=== PATIENT | male | born 1965 | race Caucasian/White ===

== ENCOUNTER 2022-02-25 12:38 | Emergency (ER) | payer OTHER, SELFPAY ==
[2022-02-25 12:39] VITALS: BP 143/92; PULSE 94; RESP 18; TEMP 36.6; O2SAT 99; BMI 21.3
--- NOTE | 2022-02-25 12:44 | EKG12_ITS ---
Test Reason : CP Blood Pressure : / mmHG Vent. Rate : 093 BPM Atrial Rate : 093 BPM P-R Int : 160 ms QRS Dur : 114 ms QT Int : 358 ms P-R-T Axes : 052 -48 060 degrees QTc Int : 445 ms Sinus rhythm with Premature atrial complexes Left anterior fascicular block Abnormal ECG Confirmed by HAZEL SUN, CHRISTIAN ([id number]), editor house organ KATARZYNA NEFF ([id number]) on 03/02/2022 10:06:38 AM Referred By: Confirmed By:CHRISTIAN OLIVA MD
--- NOTE | 2022-02-25 12:49 | EKG12_ITS ---
Test Reason : CP Blood Pressure : / mmHG Vent. Rate : 148 BPM Atrial Rate : 147 BPM P-R Int : 000 ms QRS Dur : 114 ms QT Int : 330 ms P-R-T Axes : 000 -56 083 degrees QTc Int : 518 ms Supraventricular tachycardia Left anterior fascicular block Abnormal ECG Confirmed by HAZEL SUN, CHRISTIAN ([id number]), school photograph editor KATARZYNA NEFF ([id number]) on 03/02/2022 10:04:41 AM Referred By: Confirmed By:CHRISTIAN OLIVA MD
--- NOTE | 2022-02-25 12:50 | EDS_ITS ---
HPI History of Present Illness Chief Complaint: Palpitations Detail of Chief Complaint: Left chest fluttering and mild shortness of breath Informant: patient Onset/Context/Timing Onset: Hours Activity at onset: sudden Timing: Intermittent and Lasts (Various from minutes to longer) Quality: Positive for - (Fluttering in chest) Current Severity: Gone Maximum Severity: Mild Worsened By: Nothing Relieved By: Nothing Associated Symptoms: Positive for Dyspnea; Negative for Nausea, Vomiting, Diaphoresis, Cough, Fever, Lightheadedness, Acid Reflux and Palpitations Narrative Narrative: Patient is a 56-year-old male who has not seen a physician in many years. He has no known medical problems. He is on no prescribed medication. He does take auty-[id number]-[id number] supplements. He denies weight loss or weight gain. He denies fever or chills. He denies headache, visual, ocular auditory symptoms. He denies GI symptoms. He denies symptoms. He denies neurologic symptoms. Prior Similar Symptoms: No CVD Risk Factors: Negative for Hypertension, Diabetes, Hypercholesterolemia, Family History 1' </=55 and Smoking PE Risk Factors: Negative for Recent Travel/Surgery, Recent Immobilization, Prior DVT or PE, Cancer and OCP + Smoking + >/=35 TAD Risk Factors: Negative for Marfan's Syndrome, Hypertension and Family History PFSH PFS Medical History Ulcerative colitis Home Medications metoprolol succinate 25 mg PO BID #60 tab 02/25/22 [Rx Last Taken Unknown] Allergy/AdvReac Type Severity Reaction Status Date / Time pollen extracts Allergy Hives Verified 02/25/22 12:42 Family History Other History of partial surgical removal of colon Surgical History History of partial surgical removal of colon Social History (Updated 02/25/22 @ 12:[address] Harpreet Herrmann MD) household members: none Smoking Status: Never smoker alcohol intake: never substance use type: does not use ROS ROS ED Constitutional Constitutional ED: Denies chills, fever(s), subjective, sweats or weight loss Eyes Eyes: Reports none ENT ENT ED: Denies ear pain, rhinorrhea or sore throat Cardiovascular Cardiovascular: Reports as per HPI, palpitations and racing heartbeat; Denies orthopnea or paroxysmal nocturnal dyspnea Respiratory/Chest Respiratory/Chest: Reports dyspnea; Denies cough, dyspnea on exertion, orthopnea, paroxysmal nocturnal dyspnea or sputum Gastrointestinal Gastrointestinal: Denies abdominal pain, constipation, diarrhea, melena, nausea or vomiting Genitourinary Genitourinary ED: Denies dysuria, hematuria or urinary frequency Musculoskeletal Musculoskeletal: Denies arthralgias, back pain, myalgias or neck pain Integumentary Denies abscess, Abrasions or rash Neurologic Neurologic: Denies headache(s), paresthesias or weakness Endocrine Endocrinology: Denies polydipsia, polyphagia or polyuria Hematologic/Lymphatic Hematologic/Lymphatic: Denies easy bleeding, easy bruising or lymphadenopathy EXAM Physical Exam Const Vital Signs: 02/25/22 12:39 Temperature 97.9 F Temperature Source Temporal Pulse Rate 94 Respiratory Rate 18 Blood Pressure 143/92 H Blood Pressure Mean 109 Pulse Ox 99 Oxygen Delivery Method Room Air Positive well nourished and well developed General Appearance ED: well developed and NAD; Negative for pallor HEENT Reports TM's clear and moist mucous membranes normocephalic and atraumatic Tympanic Membrane ED: Yes TM's clear Eyes PERRL and EOMs intact bilaterally General Eye ED: Negative for pale conjunctiva or scleral icterus Neck no lymphadenopathy, supple and no JVD General: tenderness Chest Wall inspection of chest normal and palpation of chest normal Resp normal respiratory effort and clear to auscultation bilaterally Effort and Inspection: respiratory distress Cardio regular rate, regular rhythm, S1 normal heart sound, S2 normal heart sound and no murmurs Rate: other Other Details: After completing history and physical monitor was alarming and patient's in a narrow complex tachycardia at 147. Repeat EKG was obtained. GI normal to inspection, nondistended, normoactive bowel sounds, soft to palpation and non-tender Back/Spine no CVA tenderness and no thoracic nor lumbar tenderness Cervical Spine: cervical spine tenderness Extremity normal to inspection General Extremety ED: Negative for edema, pulses abnormal or tenderness General Extremity: Negative for edema or pulses abnormal Neuro oriented x3 and CN's II-XII intact bilaterally Sensorium / Orientation: awake and alert Psych mental status grossly normal Skin no rashes or lesions noted and no wounds General Skin Exam: Negative for jaundice or pallor MDM MDM MDM Narrative Medical decision making narrative: Patient with rapid heart rate. Will rule out electrolyte abnormality, thyroid disease versus other etiology. EKG was obtained and the first EKG obtained was normal other than a left anterior fascicular block. Second EKG was obtained because the monitor was alarming and is remarkable for supraventricular tachycardia with a rate of 148. Attempt to r eview rhythm on strip when heart rate increased was unsuccessful. Suspect patient's dyspnea is due to the tachycardia. Chest x-ray was obtained to rule out pulmonary cause. Patient made aware of his results. He was referred to Dr. Weathers for general practitioner follow-up and cardiology with respect to the PSVT. Patient was informed to contact Dr. Gibson's office today to be seen in a week or 2 since his blood sugar is elevated. Lab Data Attestation: I reviewed the patient's lab results. Labs: Laboratory Results - last 24 hr 02/25/22 02/25/22 12:42 12:42 WBC 6.0 RBC 4.94 Hgb 16.1 Hct 46.2 MCV 93.5 MCH 32.6 H MCHC 34.8 RDW Std Deviation 39.6 RDW Coeff of Linda 11.6 Plt Count 215 MPV 10.7 Immature Gran % (Auto) 0.300 Neut % (Auto) 70.5 H Lymph % (Auto) 18.9 L [place] % (Auto) 9.0 Eos % (Auto) 1.0 Baso % (Auto) 0.3 Absolute Neuts (auto) 4.3 Absolute Lymphs (auto) 1.14 Nucleated RBC % 0 Sodium 139 Potassium 4.0 Chloride 109 H Carbon Dioxide 26.0 Anion Gap 4 L BUN 20 H Creatinine 0.95 Estim Creat Clear Calc 86.24 Est GFR (MDRD) Af Amer 105 Est GFR (MDRD) Non-Af 87 BUN/Creatinine Ratio 21.0 H Glucose 152 H Calcium 9.3 TSH 2.13 Radiography Chest X-Ray - ED: 1 View and Read by ED Physician (In the head and review of chest x-ray reveals hyperaeration consistent with COPD. Cardiac size and silhouette normal. Perihilar regions unremarkable. Osseous structures unremarkable.) Diagnostic Testing: Clinical Impression(s) from Imaging Studies Chest X-Ray 02/25/22 12:50 IMPRESSION: No radiographic evidence of acute cardiopulmonary disease. Electronically Signed: Shakir Baxter MD at 13:14 EDT , EKG Initial EKG: Attestation: I personally reviewed and interpreted this EKG as follows: Interpretation: Sinus Rhythm (Ventricular rate is 93. There is evidence of left anterior fascicular block. There is premature atrial beats noted as well. UT interval is 160 ms. Cures duration 114 ms. QT duration 258 ms. [place] to the left.) Follow-up EKG: Attestation: I personally reviewed and interpreted this EKG as follows: Interpretation: - (Supraventricular tachycardia rate of 148. There is evidence of left anterior fascicular block. Cures duration 114 ms. QT duration 10 and 30 ms. [place] to the left.) Comments: Patient spontaneously broke and is in a sinus rhythm with a rate of 86. Discharge Plan Triage Chief Complaint: Palpitations ED Provider: Harpreet Herrmann Dx/Rx/DC Orders Clinical Impression: Paroxysmal supraventricular tachycardia seen on media monitor, Hyperglycemia, Hypertension Instructions: ED Hypertension, To Be Confirmed, ED Tachycardia: PAT, ED Hyperglycemia New Susp Diabetes Prescriptions: New metoprolol succinate 25 mg tablet extended release 24 hr 25 mg PO BID Qty: 60 RF: 0 Primary Care Provider: Care Physician,No Primary Referrals: Elisabeth Wiley MD [STAFF PHYSICIAN] - 1-2 Weeks Franklin Duran MD [STAFF PHYSICIAN] - 5-7 Days Care Physician,No Primary [Primary Care Provider] - Disposition Disposition: Home, Self Care
--- NOTE | 2022-02-25 12:50 | RAD_ITS ---
INDICATION: Dyspnea EXAMINATION/TECHNIQUE: X-RAY - XR Chest 1 View COMPARISON: None. FINDINGS: LINES/DEVICES: None. LUNGS: No consolidation, edema or effusion. No pneumothorax. MEDIASTINUM AND CARDIOVASCULAR STRUCTURES: Cardiac silhouette not enlarged. Central airways and mediastinal contour are unremarkable. BONES AND SOFT TISSUES: Unremarkable. RAD/Chest 1 View (Portable) IMPRESSION: No radiographic evidence of acute cardiopulmonary disease. Electronically Signed: Shakir Baxter MD at 13:14 EDT ,
[2022-02-25 13:06] LABS: Absolute Lymphocyte Count 1.14 X10^3/uL (0.83-4.51); Absolute Neutrophil Count 4.3 X10^3/uL (2.0-7.7); Basophil# 0.02 X10^3/uL; Basophil% 0.3 % (0-1); Eosinophil# 0.06 X10^3/uL; Hematocrit 46.2 % (40-54); Hemoglobin 16.1 g/dL (13.0-16.5); Lymphocyte # 1.14 X10^3/ul (0.83-4.51); Lymphocyte % 18.9 % (19-41); Mean Corp Hgb Conc 34.8 g/dL (32-36); Mean Corpuscular Hgb 32.6 pg (27.0-32.0); Mean Corpuscular Volume 93.5 fL (80-94); Mean Platelet Vol. 10.7 fl (6.2-12.0); Monocyte# 0.54 X10^3/uL; NRBC Flagged by Analyzer 0 % (0-5); Neutrophil # 4.25 X10^3/uL (2.7-7.7); Neutrophil % 70.5 % (47-70); Platelet Count 215 K/mm3 (150-450); RBC Distribution Width CV 11.6 % (11.6-14.6); RBC Distribution Width SD 39.6 fl (35.1-43.9); Red Blood Count 4.94 M/mm3 (4.6-6.2)
[2022-02-25 13:28] LABS: Anion Gap 4 (5-15); BUN 20 mg/dL (7-18); Calcium,Total 9.3 mg/dL (8.5-10.1); Chloride 109 mmol/L (98-107); Creatinine, Serum 0.95 mg/dL (0.70-1.30); EST Glomerular Filtration Rate 87 mL/min (>60); Est Glom Filt Rate - Afr Amer 105 mL/min (>60); Estimated Creatinine Clearance 86.24 ml/min; Glucose 152 mg/dL (74-106); Sodium Level 139 mmol/L (136-145); Thyroid Stim Hormone (TSH) 2.13 uIU/mL (0.358-3.74)
[2022-02-25 13:58] VITALS: BP 133/89; PULSE 87; RESP 16; O2SAT 98
[2022-02-25] MEDS: Metoprolol(XL)Succ 25 MG Tablet PO (13:58)
== END 2022-02-25 14:05 | disposition home or self-care (01) ==
PROVIDERS: Emergency Provider Emergency Medicine; Visit Provider Emergency Medicine
DX: I47.9 Paroxysmal tachycardia, unspecified (principal); R73.9 Hyperglycemia, unspecified; I10 Essential (primary) hypertension
CPT/HCPCS: 71045; 80048; 84443; 85025; 93005; 99285; A4216

== ENCOUNTER → 2022-04-13 | Outpatient (CLI) | payer OTHER, SELFPAY ==
--- NOTE | 2022-04-13 07:00 | ECHOD_ITS ---
Reason For Study: Arrhythmia Procedure This was a 2D Doppler, Color Flow transthoracic echocardiogram. The exam was of adequate technical quality. Exam performed in department. Left Ventricle Normal LV size. Left ventricular systolic function is normal. The estimated ejection fraction is 60 %. No evidence for diastolic dysfunction. No regional wall motion abnormalities noted. Right Ventricle Normal RV size. Normal systolic function. Atria Normal left atrium. Normal right atrium. No doppler evidence for ASD. Mitral Valve There is no mitral annular calcification. Normal mitral valve. Trivial mitral valve insufficiency. Tricuspid Valve Normal tricuspid valve. Trivial tricuspid valve insufficiency. Right ventricular systolic pressure estimated to be 22 mmHg. Aortic Valve Trisinus/trileaflet aortic valve. Normal aortic valve. Pulmonic Valve The pulmonic valve is not well visualized. Trivial pulmonic valve insufficiency. Great Vessels Normal sized aortic root. Pericardium/Pleural No pericardial effusion. MMode/2D Measurements & Calculations LVIDd: 4.6 cm IVSd: 1.0 cm Ao root diam: 3.0 cm LVIDs: 3.3 cm LVPWd: 0.90 cm RVDd: 2.9 cm FS: 28.7 % LAV(MOD-bp): 44.6 ml LVAd ap4: 26.8 cm2 SV(MOD-sp4): 44.8 ml LAV(MOD-bp) Indexed: 24.2 ml/m2 LVLd ap4: 7.7 cm LAV(MOD-sp2): 54.6 ml EDV(MOD-sp4): 76.6 ml LAV(MOD-sp4): 33.8 ml EDV(sp4-el): 79.4 ml LVAs ap4: 15.6 cm2 LVLs ap4: 6.3 cm ESV(MOD-sp4): 31.8 ml ESV(sp4-el): 32.8 ml EF(MOD-sp4): 58.5 % EF(sp4-el): 58.6 % SV(sp4-el): 46.5 ml LA A4 area: 14.2 cm2 LA dimension(2D): 3.3 cm RA A4 area: 11.0 cm2 Doppler Measurements & Calculations MV E max grant: 64.2 cm/sec Lat Peak E' Grant: 11.8 cm/sec Med Peak E' Grant: 9.2 cm/sec MV A max grant: 50.6 cm/sec E/E' lat: 5.4 E/E' med: 7.0 MV E/A: 1.3 Ao V2 max: 125.6 cm/sec LV V1 max: 88.3 cm/sec PA V2 max: 119.1 cm/sec Ao max P.3 mmHg LV V1 max P.1 mmHg Ao V2 mean: 89.7 cm/sec Ao mean P.5 mmHg Ao V2 VTI: 28.0 cm TR max grant: 216.1 cm/sec TR max P.7 mmHg ECHO/Echo Complete Interpretation Summary Left ventricular systolic function is normal. The estimated ejection fraction is 60 %. Trivial mitral valve insufficiency. Trivial tricuspid valve insufficiency. Trivial pulmonic valve insufficiency. Right ventricular systolic pressure estimated to be 22 mmHg. No evidence for diastolic dysfunction. Ordering Physician: Franklin Duran Referring Physician: Franklin Duran Performed By: Barbie Hernandez, REJI, RVT
--- NOTE | 2022-04-13 08:39 | STRESSREP_ITS ---
Stress Test Report Date: 04-13-2022 Procedure: Pharmacologic stress nuclear imaging study Indications: PSVT; palpitations; chest pain Consent: Per the patient Procedure: The patient underwent pharmacologic (Regadenoson 0.4mg ) evaluation with a peak heart rate of 85 beats per minute (51%predicted maximal heart rate) and a peak blood pressure of 126/82 mmHg. The baseline ECG demonstrated normal sinus rhythm. The peak pharmacologic ECG demonstrated no obvious ECG changes. There were no cardiac dysrhythmias pretest, during pharmacologic infusion, or re covery. There was no complaint of chest discomfort during pharmacologic infusion or recovery. The examination was discontinued secondary to completion of protocol. Impression: 1. Pharmacologic (Regadenoson) evaluation 2. Peak pharmacologic ECG with no obvious ECG changes. 3. There were no cardiac dysrhythmias pretest, during pharmacologic infusion, or recovery. 4. Nuclear images pending Myocardial perfusion imaging study: Technique: The patient was injected with 11.6 millicuries of technetium 99m Cardiolite and subsequently rest SPECT Cardiolite nuclear imaging was obtained in the h orizontal long, vertical long, and short axis views. The patient underwent pharmacologic (Regadenoson) evaluation with a peak heart rate of 85 beats per minute (51% percent predicted maximal heart rate) and a peak blood pressure of 126/82 mmHg. The patient was injected with 36.0 millicuries of technetium 99m Cardiolite and subsequently stress SPECT Cardiolite nuclear imaging was obtained in the horizontal long, vertical long, and short axis views. A gated Cardiolite study at peak stress was obtained. Interpretation: Rest and stress SPECT Cardiolite nuclear imaging status post realignment, n ormalization, and attenuation correction demonstrate the appearance of body motion during image acquisition and on the preattenuation images the appearance of diminished myocardial perfusion/tracer uptake in portions of the mid inferior segments without significant change between rest and stress and on the post attenuation correction images the appearance of relative uniform tracer uptake and myocardial perfusion appearing within normal limits. There is end systolic thickening and brightening. The gated Cardiolite study demonstrates myocardial thickening and inward wall motion. The reported LVEF is 69%. Impression: 1. Rest and stress SPECT currently nuclear imaging demonstrate the appearance of body motion during image acquisition and myocardial perfusion changes on the preattenuation correction images appearing compatible with an area of previous myocardial injury/infarction with no myocardial perfusion images considered diagnostic for associated stress-induced myocardial ischemia and on the post attenuation correction images the appearance of relatively uniform tracer uptake and myocardial perfusion appearing within normal limits. 2. The gated Cardiolite study reports an LVEF of 69%. This note was generated with Be my eyesation software. It may contain incorrect words, spelling, and punctuation that were not noted in checking the note before signing.
== END | disposition home or self-care (01) ==
LOC: CVS 06:58
PROVIDERS: Referring Provider Internal Medicine Cardiovascular Disease; Visit Provider Internal Medicine Cardiovascular Disease
DX: I47.1 Supraventricular tachycardia (principal); R07.9 Chest pain, unspecified
CPT/HCPCS: 78452; 93017; 93306; A9500; A4216; J2785

== ENCOUNTER → 2022-11-02 | Outpatient (CLI) | payer OTHER, SELFPAY ==
[2022-11-02 12:39] LABS: Vitamin D,25 Hydroxy 26.1 ng/mL
[2022-11-02 12:46] LABS: Absolute Lymphocyte Count 0.93 X10^3/uL (0.83-4.51); Absolute Neutrophil Count 3.3 X10^3/uL (2.0-7.7); Basophil# 0.04 X10^3/uL; Basophil% 0.8 % (0-1); Eosinophil# 0.22 X10^3/uL; Eosinophils% 4.5 % (0-5); Hematocrit 45.8 % (40-54); Hemoglobin 15.9 g/dL (13.0-16.5); Lymphocyte # 0.93 X10^3/ul (0.83-4.51); Lymphocyte % 18.9 % (19-41); Mean Corp Hgb Conc 34.7 g/dL (32-36); Mean Corpuscular Hgb 33.1 pg (27.0-32.0); Mean Corpuscular Volume 95.2 fL (80-94); Mean Platelet Vol. 10.7 fl (6.2-12.0); Monocyte# 0.45 X10^3/uL; Monocyte% 9.1 % (0-10); NRBC Flagged by Analyzer 0 % (0-5); Neutrophil # 3.27 X10^3/uL (2.7-7.7); Neutrophil % 66.5 % (47-70); Platelet Count 202 K/mm3 (150-450); RBC Distribution Width CV 11.7 % (11.6-14.6); RBC Distribution Width SD 41.1 fl (35.1-43.9); Red Blood Count 4.81 M/mm3 (4.6-6.2); White Blood Count 4.9 K/mm3 (4.4-11.0)
[2022-11-02 12:57] LABS: Hemoglobin A1c 5.6 % (3.8-5.6)
[2022-11-02 13:09] LABS: AST(SGOT) 21 U/L (15-37); Alanine Aminotransfer ALT/SGPT 35 U/L (16-61); Alkaline Phosphatase 55 U/L (45-117); Anion Gap 9 (5-15); BUN 18 mg/dL (7-18); BUN/Creat Ratio 21.9 RATIO (10-20); Calcium,Total 9.3 mg/dL (8.5-10.1); Chloride 106 mmol/L (98-107); Cholesterol 256 mg/dL (200); Creatinine, Serum 0.82 mg/dL (0.70-1.30); EST Glomerular Filtration Rate 103 mL/min (>60); Est Glom Filt Rate - Afr Amer 125 mL/min (>60); Globulin 4.2 g/dL (2.2-4.2); Glucose 115 mg/dL (74-106); High Density Lipoprotein 58 mg/dL; Potassium 3.9 mmol/L (3.5-5.1); Protein, Total 8.2 g/dL (6.4-8.2); Sodium Level 139 mmol/L (136-145); Thyroid Stim Hormone (TSH) 2.93 uIU/mL (0.358-3.74); Triglycerides 153 mg/dL; Very Low Density Lipoprotein 31 mg/dL (5-40)
== END | disposition home or self-care (01) ==
LOC: BIMLAB 09:35
PROVIDERS: PCP Internal Medicine; Referring Provider Internal Medicine; Visit Provider Internal Medicine
DX: R07.9 Chest pain, unspecified (principal); I47.1 Supraventricular tachycardia; R00.2 Palpitations; Z12.5 Encounter for screening for malignant neoplasm of prostate; E55.9 Vitamin D deficiency, unspecified
CPT/HCPCS: 36415; 80053; 80061; 82306; 83036; 84153; 84443; 85025; G0103

== ENCOUNTER 2024-01-07 03:37 | Emergency (ER) | payer OTHER, SELFPAY ==
[2024-01-07 03:38] VITALS: BP 116/57; PULSE 65; RESP 14; TEMP 36.4; O2SAT 100
[2024-01-07 04:02] LABS: Absolute Lymphocyte Count 0.88 X10^3/uL (0.83-4.51); Absolute Neutrophil Count 11.3 X10^3/uL (2.0-7.7); Basophil# 0.04 X10^3/uL; Basophil% 0.3 % (0-1); Eosinophil# 0.07 X10^3/uL; Eosinophils% 0.5 % (0-5); Hematocrit 41.8 % (40-54); Hemoglobin 14.5 g/dL (13.0-16.5); Lymphocyte # 0.88 X10^3/ul (0.83-4.51); Lymphocyte % 6.8 % (19-41); Mean Corp Hgb Conc 34.7 g/dL (32-36); Mean Corpuscular Hgb 31.7 pg (27.0-32.0); Mean Corpuscular Volume 91.3 fL (80-94); Mean Platelet Vol. 10.3 fl (6.2-12.0); Monocyte# 0.55 X10^3/uL; Monocyte% 4.3 % (0-10); NRBC Flagged by Analyzer 0 % (0-5); Neutrophil # 11.31 X10^3/uL (2.7-7.7); Neutrophil % 87.7 % (47-70); Platelet Count 208 K/mm3 (150-450); RBC Distribution Width CV 11.9 % (11.6-14.6); RBC Distribution Width SD 39.7 fl (35.1-43.9); Red Blood Count 4.58 M/mm3 (4.6-6.2); White Blood Count 12.9 K/mm3 (4.4-11.0)
[2024-01-07] MEDS: Ketorolac 30 MG/ML Syringe IV (04:03)
[2024-01-07] MEDS: 0.9% Normal Saline (1000mL) 1,000 ML 999 ML IV (04:03)
[2024-01-07] MEDS: Ondansetron 4 MG/2 ML Vial IV (04:03)
[2024-01-07 04:18] LABS: Anion Gap 8 (5-15); BUN 23 mg/dL (7-18); BUN/Creat Ratio 21.3 RATIO (10-20); Calcium,Total 9.3 mg/dL (8.5-10.1); Chloride 108 mmol/L (98-107); Creatinine, Serum 1.08 mg/dL (0.70-1.30); EST Glomerular Filtration Rate 75 mL/min (>60); Est Glom Filt Rate - Afr Amer 91 mL/min (>60); Glucose 178 mg/dL (74-106); Potassium 3.7 mmol/L (3.5-5.1); Sodium Level 138 mmol/L (136-145)
--- NOTE | 2024-01-07 04:18 | CT_ITS ---
INDICATION: left flank pain EXAMINATION: CT ABDOMEN AND PELVIS WITHOUT CONTRAST - CT Abdomen And Pelvis W/O Contrast Injection TECHNIQUE: Helically acquired images were obtained of the abdomen and pelvis without oral or IV contrast. A radiation dose optimization technique was used for this scan. IV Contrast dosage and agent: None. Oral contrast: None. RADIATION DOSAGE (If Supplied By Facility): CTDIvol = ( 6.04 ) mGy, DLP = ( 309.57 ) mGycm COMPARISON: No relevant prior comparison study available FINDINGS: LOWER CHEST: Lung bases are clear. No cardiomegaly or pericardial effusion. LIVER: The liver is normal in size, shape, and attenuation. There are a few benign hepatic cysts. No suspicious liver lesions. GALLBLADDER AND BILIARY TREE: The gallbladder is normally distended. No gallstones. No gallbladder wall thickening or edema. No intra- or extrahepatic biliary ductal dilation. PANCREAS: No focal cystic or solid mass. SPLEEN: Normal size without focal cystic or solid mass. ADRENAL GLANDS: No nodules. KIDNEYS AND URETERS: There is mild left hydroureteronephrosis upstream from a 2 mm stone in the left ureter just below the level of the sacral promontory. No additional urinary calculi. PERITONEUM: No ascites or free air. No other fluid collection. BOWEL: Status post total colectomy with Carrasquillo''s pouch and right lower quadrant end ileostomy. No intestinal obstruction or inflammation. LYMPH NODES: No enlarged mesenteric or retroperitoneal lymph nodes. VESSELS: Aorta is non-dilated. URINARY BLADDER: Unremarkable. REPRODUCTIVE ORGANS: No pelvic masses. ABDOMINAL WALL: No discrete abdominal or pelvic wall hernia. BONES: No acute or suspicious osseous abnormality. CT/Abdomen/Pelvis without Cont IMPRESSION: * There is a 2 mm calculus in the mid to distal LEFT ureter with accompanying mild hydroureteronephrosis. * Total colectomy with right lower quadrant end ileostomy and Carrasquillo''s pouch. Electronically Signed: Luis Alberto Phillips MD at 5:34 EST Reading Location ID and State: [id number] / [place] Tel , Service support ,
[2024-01-07 05:15] VITALS: BP 113/69; PULSE 81; RESP 16; TEMP 37.1; O2SAT 98
[2024-01-07 05:25] LABS: Bacteria 0 SEEN /hpf (None Seen); Mucous, Urine 0 SEEN /hpf (<or=2+); Red Blood Cells-Urine 0 SEEN /hpf (0-5); Squamous Epithelial Cells - UA 0 SEEN /hpf (0-5)
--- NOTE | 2024-01-07 05:48 | EDS_ITS ---
HPI History of Present Illness Chief Complaint: Abd Pain Informant: patient and spouse/S.O. Narrative Narrative: Patient is a 58-year-old male with past medical history of colitis requiring colostomy and paroxysmal supraventricular tachycardia. He states that he could not sleep last night and went down to the couch and while sitting there suddenly developed some left-sided flank/abdominal pain. He denies any recent trauma or excessive activity. He denies any dysuria or hematuria. He states that the pain has waxed and waned for the past few hours but has not completely resolved and secondary to this comes in for evaluation [facility] Medical History Chest pain, unspecified Dyspnea Palpitations Paroxysmal supraventricular tachycardia Ulcerative colitis Home Medications ketorolac 10 mg tablet 10 mg PO 4X/DAY PRN PRN pain 5 days #20 tabs 01/07/24 [Rx Last Taken Unknown] ondansetron 4 mg disintegrating tablet 4 mg PO TID PRN nausea and vomiting #21 tabs 01/07/24 [Rx Last Taken Unknown] oxycodone-acetaminophen 5 mg-325 mg tablet (Percocet) 1 tab PO Q6H PRN pain 3 da ys #12 tabs 01/07/24 [Rx Last Taken Unknown] tamsulosin 0.4 mg capsule (Flomax) 0.4 mg PO DAILY #14 caps 01/07/24 [Rx Last Taken Unknown] Allergy/AdvReac Type Severity Reaction Status Date / Time pollen extracts Allergy Hives Verified 01/07/24 03:42 Family History Father CAD (coronary artery disease) History of coronary artery bypass surgery Mother Presence of permanent cardiac pacemaker Surgical History History of partial surgical removal of colon Social History household members: none Smoking Status: Never smoker alcohol intake: never substance use type: does not use caffeine: No ROS ROS ED Constitutional Constitutional ED: Denies chills or fever(s) ENT ENT ED: Denies sore throat Cardiovascular Cardiovascular: Denies chest pain Respiratory/Chest Respiratory/Chest: Denies cough or dyspnea Gastrointestinal Gastrointestinal: Reports abdominal pain and nausea; Denies diarrhea or vomiting Genitourinary Genitourinary ED: Denies dysuria or hematuria Musculoskeletal Musculoskeletal: Reports back pain; Denies myalgias Integumentary Denies rash Neurologic Neurologic: Denies headache(s) Hematologic/Lymphatic Hematologic/Lymphatic: Denies easy bleeding or easy bruising EXAM Physical Exam Const Vital Signs: 01/07/24 03:38 01/07/24 05:15 01/07/24 06:00 Temperature 97.5 F L 98.8 F Temperature Source Oral Temporal Pulse Rate 65 81 78 Respiratory Rate 14 16 Blood Pressure 116/57 L 113/69 114/59 L Blood Pressure Mean 76 83 77 Pulse Ox 100 98 Oxygen Delivery Method Room Air Room Air 01/07/24 07:00 Temperature 98 F Temperature Source Pulse Rate 72 Respiratory Rate 18 Blood Pressure 111/57 L Blood Pressure Mean 75 Pulse Ox 98 Oxygen Delivery Method Positive well nourished and well developed General Appearance ED: well developed; Negative for pallor HEENT HEENT Narrative: Normocephalic atraumatic Eyes PERRL and EOMs intact bilaterally General Eye ED: Negative for scleral icterus Neck supple Resp normal respiratory effort and clear to auscultation bilaterally Cardio regular rate and regular rhythm GI non-distended GI Narrative: Abdomen is soft and nondistended with normal active bowel sounds. There is mild pain with palpation in the left mid to upper abdomen. No voluntary guarding or rigidity. Patient does have a colostomy in place that is draining brown soft stool without surrounding soft tissue changes to suggest infection. No pulsatile mass or fluid wave Auscultation: normoactive bowel sounds Palpation: soft Back/Spine Back/Spine Narrative: Positive left CVA pain noted Extremity normal to inspection Neuro oriented x3, CN's II-XII intact bilaterally and no sensory deficits noted Sensorium / Orientation: alert Motor Exam: strength 5/5 throughout Psych mental status grossly normal Skin no rashes or lesions noted and no wounds General Skin Exam: Negative for jaundice or pallor MDM MDM MDM Narrative Medical decision making narrative: Patient presented to the ER with stable vitals but reported sudden onset of left-sided abdominal/flank pain that waxes and wanes without trauma or excessive activity. Differential diagnosis is for kidney stone versus UTI versus pyelonephritis versus atypical biliary colic versus pancreatitis. Basic labs and a CT were ordered. White count is slightly elevated but this is most likely stress response as there is no obvious signs of infection on exam. Urine sample showed no sign of infection. The remainder of the lab work reveals no signs of acute kidney injury or severe electrolyte derangement. Patient was given IV fluids and Toradol and had resolution of his pain. CT scan confirmed a 2 mm stone in the left ureter. Therefore at this time as his pain is controlled he does not have SHERRY or signs of urosepsis there is no need for admission and he can follow-up with urology on an outpatient basis. History & Record Review Discussion w/independent historian: Patient and Significant other Lab Data Attestation: I reviewed the patient's lab results. Labs: Laboratory Results - last 24 hr 01/07/24 01/07/24 03:45 05:16 WBC 12.9 H RBC 4.58 L Hgb 14.5 Hct 41.8 MCV 91.3 MCH 31.7 MCHC 34.7 RDW Std Deviation 39.7 RDW Coeff of Linda 11.9 Plt Count 208 MPV 10.3 Immature Gran % (Auto) 0.400 Neut % (Auto) 87.7 H Lymph % (Auto) 6.8 L [place] % (Auto) 4.3 Eos % (Auto) 0.5 Baso % (Auto) 0.3 Absolute Neuts (auto) 11.3 H Absolute Lymphs (auto) 0.88 Nucleated RBC % 0 Sodium 138 Potassium 3.7 Chloride 108 H Carbon Dioxide 22.0 Anion Gap 8 BUN 23 H Creatinine 1.08 Estim Creat Clear Calc 69.70 Est GFR (MDRD) Af Amer 91 Est GFR (MDRD) Non-Af 75 BUN/Creatinine Ratio 21.3 H Glucose 178 H Calcium 9.3 Urine Color Yellow Urine Clarity Clear Urine pH 6.0 Ur Specific [place] 1.020 Urine Protein Negative Urine Glucose (UA) Normal Urine Ketones 15 H Urine Occult Blood 10 H Urine Nitrite Negative Urine Bilirubin Negative Urine Urobilinogen Normal Ur Leukocyte Esterase 25 H Urine RBC 0 SEEN Urine WBC 0-5 SEEN Ur Squamous Epith Cells 0 SEEN Urine Bacteria 0 SEEN Urine Mucus 0 SEEN Radiography Diagnostic Testing: Clinical Impression(s) from Imaging Studies Abdomen/Pelvis CT 01/07/24 04:18 IMPRESSION: * There is a 2 mm calculus in the mid to distal LEFT ureter with accompanying mild hydroureteronephrosis. * Total colectomy with right lower quadrant end ileostomy and Carrasquillo''s pouch. Electronically Signed: Luis Alberto Phillips MD at 5:34 EST , Discharge Plan Triage Chief Complaint: Abd Pain ED Provider: Rupert Best Dx/Rx/DC Orders Clinical Impression: Renal colic, Kidney stone, Paroxysmal supraventricular tachycardia, Colostomy in place Instructions: ED Kidney Stone with Pain Prescriptions: New tamsulosin [Flomax] 0.4 mg capsule 0.4 mg PO DAILY Qty: 14 0RF oxycodone-acetaminophen [Percocet] 5-325 mg tablet 1 tab PO Q6H PRN (Reason: pain) 3 Days Qty: 12 0RF ketorolac 10 mg tablet 10 mg PO 4X/DAY PRN PRN (Reason: pain) 5 Days Qty: 20 0RF ondansetron 4 mg tablet,disintegrating 4 mg PO TID PRN (Reason: nausea and vomiting) Qty: 21 0RF Primary Care Provider: Elisabeth Wiley Referrals: Jose Ramon Milton MD [Med Staff - Active Staff] - Elisabeth Wiley MD [Primary Care Provider] - Activity Restrictions/Additional Instructions: Please follow-up with urology for repeat evaluation. If you develop a fever over 100.4 or your pain is not controlled the prescribed medications please return to the hospital for repeat evaluation Disposition Disposition: Home, Self Care Discharge Date/Time: 01/07/24 07:01
[2024-01-07 05:50] LABS: Color, Urine Yellow (Yellow); Glucose, Dipstick Normal (Normal); Ketone-Dipstick 15 mg/dl (Negative); Leukocyte Esterase-Dipstick 25 /ul (Negative); Nitrite-Dipstick Negative (Negative); Occult Blood-Urine 10 /ul (Negative); Protein-Dipstick Negative (Negative); Urine Bilirubin Dipstick Negative (Negative); Urine Clarity Clear (Clear); Urine Urobilinogen Normal (Normal)
[2024-01-07 06:00] VITALS: BP 114/59; PULSE 78
[2024-01-07 06:41] LABS: White Blood Cells 0-5 SEEN /hpf (0-5)
[2024-01-07 07:00] VITALS: BP 111/57; PULSE 72; RESP 18; TEMP 36.6; O2SAT 98
== END 2024-01-07 07:01 | disposition home or self-care (01) ==
PROVIDERS: Emergency Provider Emergency Medicine; PCP Internal Medicine; Visit Provider Emergency Medicine
DX: N20.2 Calculus of kidney with calculus of ureter (principal); Z93.3 Colostomy status; I47.10 Supraventricular tachycardia, unspecified
CPT/HCPCS: 74176; 80048; 81001; 85025; 96374; 96375; 99283; J7030; A4216; J2405

== ENCOUNTER → 2024-01-15 | Outpatient (CLI) | payer OTHER, SELFPAY | END | disposition home or self-care (01) | LOC: LABSPEC 15:58 | PROVIDERS: PCP Internal Medicine; Referring Provider Urology; Visit Provider Urology | DX: Z87.442 Personal history of urinary calculi (principal) | CPT/HCPCS: 82360 ==

== ENCOUNTER → 2024-02-26 | Outpatient (CLI) | payer OTHER, SELFPAY ==
[2024-02-26 16:14] LABS: PSA,Total - Annual Screen 1.34 ng/mL (0.00-4.00)
== END | disposition home or self-care (01) ==
LOC: LAB 15:15
PROVIDERS: PCP Internal Medicine; Referring Provider Nurse Practitioner; Visit Provider Nurse Practitioner
DX: Z12.5 Encounter for screening for malignant neoplasm of prostate (principal)
CPT/HCPCS: 36415; 84153; G0103

== ENCOUNTER → 2025-06-16 | Outpatient (CLI) | payer OTHER, SELFPAY ==
[2025-06-16 12:16] LABS: PSA,Total - Annual Screen 0.78 ng/mL (0.02-4.00)
== END | disposition home or self-care (01) ==
LOC: LAB 10:33
PROVIDERS: PCP Internal Medicine; Referring Provider Nurse Practitioner; Visit Provider Nurse Practitioner
DX: Z12.5 Encounter for screening for malignant neoplasm of prostate (principal)
CPT/HCPCS: 36415; 84153; G0103